=== PATIENT | female | born 1960 ===

== ENCOUNTER 2016-09-08 18:12 | Emergency (ER) | payer OTHER ==
[2016-09-08] MEDS ORDERED: BYDUREON P2 MG/0.65 SC (20:06)
[2016-09-08] MEDS ORDERED: VALACYCLOVIR1000 M1 PO (20:06)
[2016-09-08] MEDS ORDERED: DICLOFENAC SODI75 M2 PO (20:07)
[2016-09-08] MEDS ORDERED: NAPROSYN500 M1 PO (20:07)
[2016-09-08] MEDS ORDERED: ZESTRIL20 M3 PO (20:07)
[2016-09-08 20:28] LABS: BASO % 0.2 % (0-2); EOS % 1.2 % (0-7); EOSINOPHIL ABSOLUTE COUNT 0.1 tho/cmm (0.0-0.7); HCT-HEMATOCRIT 36.6 % (34.0-49.0); HGB-HEMOGLOBIN 12.5 gm/dl (12.0-15.5); IMMATURE GRANULOCYTES ABSOLUTE 0.02 tho/cmm (0-0.03); IMMATURE GRANULOCYTES PERCENT 0.2 % (0-0.3); LYMPH % 25.2 % (20-45); LYMPH ABSOLUTE COUNT 2.3 tho/cmm (0.8-4.5); MCHC MEAN CORPUSCULAR HGB CONC 34.2 % (32.0-36.0); MEAN PLATELET VOLUME 10.3 cmc (9.4-12.4); MONO % 7.5 % (0-12); MONOCYTE ABSOLUTE COUNT 0.7 tho/cmm (0.0-1.2); NEUTROPHILS % 65.7 % (40-80); PLATELET COUNT 266 tho/cmm (150-450); RED BLOOD COUNT 4.16 mil/cmm (4.00-5.20); RED CELL DISTRIBUTION WIDTH 12.1 % (12.4-16.4); WHITE BLOOD COUNT 9.1 tho/cmm (4.0-10.0)
[2016-09-08 20:46] LABS: ANION GAP 13 mmol/L (0-20); BLOOD UREA NITROGEN 61 mg/dl (6-24); CALCIUM 9.1 mg/dl (8.5-10.5); CARBON DIOXIDE-VENOUS 28 mmol/L (22-32); CHLORIDE 104 mmol/l (96-110); CREATININE 1.63 mg/dl (0.50-1.10); GLUCOSE 148 mg/dL (70-110); MAGNESIUM 2.6 mg/dl (1.8-2.6); POTASSIUM 3.8 mmol/L (3.7-5.1); SODIUM 141 mmol/L (135-145); eGFR VALUE FOR BLACK 40 mL/Min
[2016-09-08 21:19] LABS: URINE BILIRUBIN NEGATIVE (NEG); URINE BLOOD NEGATIVE (NEG); URINE GLUCOSE (UA) NEGATIVE (NEG); URINE KETONE NEGATIVE (NEG); URINE LEUKOCYTE ESTERASE NEGATIVE (NEG); URINE NITRITE NEGATIVE (NEG); URINE PROTEIN NEGATIVE (NEG)
[2016-09-08 21:21] LABS: URINE APPEARANCE CLEAR; URINE COLOR YELLOW
== END 2016-09-08 23:15 ==
LOC: EDMED 18:12
PROVIDERS: Emergency Medicine
DX: N17.9 Acute kidney failure, unspecified (principal); E86.0 Dehydration; E11.9 Type 2 diabetes mellitus without complications; E78.5 Hyperlipidemia, unspecified; Z79.4 Long term (current) use of insulin
CPT/HCPCS: J7030